=== PATIENT | female | born 1935 | race Caucasian/White ===

== ENCOUNTER 2016-10-24 21:40 | Inpatient (IN) | payer OTHER, BC ==
[~2016-10-24] VITALS: Ht 167.6 cm; Wt 90.2 kg
[~2016-10-24 21:40] MED LIST: ACETAMINOPHN-T1 EACH PO; ASCORBIC ACID500 M3 PO; ASPIRIN81 M2 PO; BACTROBAN OINTM22 GM BOTH NARES; CALCIUM CARBON260 MG PO; CHILD ASPIRIN81 M1 PO; CLINDAMYCIN HC300 MG PO; CLOPIDOGREL75 MG PO; COLACE100 MG PO; CYANOCOBALAM1000 MCG PO; DICYCLOMINE HCL10 MG PO; DITROPAN5 MG PO; FOLIC ACID1 MG PO; GABAPENTIN300 MG PO; GLIMEPIRIDE1 MG PO; GLIPIZIDE5 MG PO; HURRICAINE SPRA60 ML MM; KEFLEX500 MG PO; LASIX20 MG PO; LOVENOX40 MG/0.4 SC; MOBIC7.5 MG PO; Magic Mouthwash Garg MM; NOVOLOG PE100 UNITS/ SC; ONCE DAILY1 EACH PO; PANTOPRAZOLE SO40 MG PO; PERCOCET 5/31 TABLET PO; POLYETHYLENE GL17 GM PO; PRAVASTATIN SOD40 MG PO; PREDNISONE20 MG PO; PROAIR HFA8.5 GM IH; PROBIOTIC1 EAC1 PO; ROPINIROLE HCL2 MG PO; SALINE FLUSH 5 M5 ML IV; TRAMADOL HCL50 MG PO; TRIAMTERENE-HC1 EAC1 PO; TYLENOL REGULA325 MG PO; ULTRAM50 MG PO; VESICARE10 MG PO; VESICARE5 MG PO; VITAMIN D31000 UNI2 PO; [UNRECOGNIZED DRUG - REMARK]
[2016-10-24 22:07] LABS: MCH 28.5 PG (29.0-34.0); MCHC 31.9 G/DL (30.0-36.0); MCV 89.1 FL (83-99); MEAN PLAT.VOLUME 9.7 uM^3 (9.5-12.4); PLATELET COUNT 329 K/uL (156-360); RBC DIS.WIDTH-CV 15.6 % (11.8-14.6); RBC DIS.WIDTH-SD 49.9 % (39-53); RED BLOOD COUNT 4.04 M/uL (3.80-5.20)
[2016-10-24 22:15] LABS: EOSINOPHIL (%) 0 % (0-5); IMMATURE GRANULOCYTE (%) 0.3 % (0.0-0.7); IMMATURE GRANULOCYTE COUNT 0.8 K/uL; LYMPHOCYTE COUNT 1.2 K/uL (1.0-2.8); MONOCYTE (%) 3.1 % (3-12); MONOCYTE COUNT 0.9 K/uL (0-0.8); NEUTROPHIL (%) 92.5 % (45-76); NEUTROPHIL COUNT 27.7 K/uL (1.8-6.4); WHITE BLOOD COUNT 29.9 K/uL (4.1-10.2)
[2016-10-24 22:17] LABS: CHLORIDE 102 mEq/L (99-109); POTASSIUM 4.1 mEq/L (3.7-5.4); SODIUM 137 mEq/L (136-147)
[2016-10-24 22:19] LABS: ADD MIUA? YES; BILIRUBIN NEGATIVE; BLOOD SMALL; COLOR YELLOW ((YELLOW)); GLUCOSE (STRIP) >=500; KETONES NEGATIVE; LEUKOCYTES NEGATIVE; NITRITE POSITIVE; PROTEIN (STRIP) NEGATIVE; SPECIFIC GRAVITY 1.011 (1.000-1.030); UROBILINOGEN 0.2 MG/DL (0.2-1.0)
[2016-10-24 22:21] LABS: ANION GAP 12 MEQ/L (2-14); TOTAL BILIRUBIN 0.5 mg/dL (0.0-1.0)
[2016-10-24 22:23] LABS: ALKALINE PHOSPHATASE 136 IU/L (3-129); GFR ESTIMATE (CALCULATED) > 59 mL/min/; GLUCOSE 250 mg/dL (70-99)
[2016-10-24 22:24] LABS: UREA NITROGEN (BUN) 16 mg/dL (9-23)
[2016-10-24 22:26] LABS: LIPASE 12 U/L (1.0-51.0)
[2016-10-24 22:27] LABS: INTER. NORMALIZED RATIO 1.3; PROTHROMBIN TIME 13.8 (9.2-11.2); PTT 29.9 (25-32)
[2016-10-24 22:28] LABS: BACTERIA RARE /HPF; EPITHELIAL CELLS RARE /HPF; MUCUS TRACE /LPF; RED BLOOD CELLS 0-5 /HPF (0-5); UCUL ADDED? NO; WHITE BLOOD CELLS 0-5 /HPF (0-5)
[2016-10-24 22:30] LABS: TROP-I INTERPRETATION NEGATIVE; TROPONIN-I < 0.01 ng/mL (0.0-0.30)
[2016-10-24 22:35] LABS: CASTS NONE SEEN /LPF; CRYSTALS NONE SEEN
[2016-10-25] VITALS (7 sets, daily range): BP systolic 98–121; BP diastolic 47–57
[2016-10-25 08:35] LABS: POINT-OF-CARE METER ID UU14149396
[2016-10-25 12:01] LABS: POINT-OF-CARE METER ID UU13113781
[2016-10-25 16:56] LABS: POINT-OF-CARE METER ID UU13113781
[2016-10-25 21:26] LABS: POINT-OF-CARE METER ID UU13113781
[2016-10-26 03:20] VITALS: BP 119/56
[2016-10-26 08:38] LABS: POINT-OF-CARE METER ID UU14174216; POINT-OF-CARE USER ID ENVKC36
[2016-10-26 09:00] VITALS: BP 136/76
[2016-10-26 11:58] LABS: POINT-OF-CARE METER ID UU14174216; POINT-OF-CARE USER ID ENVKC36
[2016-10-26 16:42] VITALS: BP 178/72
[2016-10-26 16:48] LABS: POINT-OF-CARE METER ID UU14174216; POINT-OF-CARE USER ID ENVKC36
[2016-10-26 19:15] VITALS: BP 150/66
[2016-10-26 21:01] LABS: POINT-OF-CARE METER ID UU14174216
[2016-10-26 23:00] VITALS: BP 129/58
[2016-10-27 06:52] LABS: BASOPHIL COUNT 0.1 K/uL (0-0.1); EOSINOPHIL (%) 6.1 % (0-5); EOSINOPHIL COUNT 0.5 K/uL (0-0.3); IMMATURE GRANULOCYTE (%) 0.1 % (0.0-0.7); LYMPHOCYTE COUNT 1.4 K/uL (1.0-2.8); MCH 27.4 PG (29.0-34.0); MCV 88.3 FL (83-99); MEAN PLAT.VOLUME 9.7 uM^3 (9.5-12.4); MONOCYTE (%) 9.3 % (3-12); MONOCYTE COUNT 0.7 K/uL (0-0.8); NEUTROPHIL (%) 64.9 % (45-76); NEUTROPHIL COUNT 4.8 K/uL (1.8-6.4); PLATELET COUNT 240 K/uL (156-360); RBC DIS.WIDTH-CV 16.1 % (11.8-14.6); RBC DIS.WIDTH-SD 51.8 % (39-53); RED BLOOD COUNT 3.51 M/uL (3.80-5.20)
[2016-10-27 06:59] LABS: WHITE BLOOD COUNT 7.3 K/uL (4.1-10.2)
[2016-10-27 07:04] LABS: ANION GAP 7 MEQ/L (2-14); CHLORIDE 106 MEQ/L (99-109); GFR ESTIMATE (CALCULATED) > 59 mL/min/; POTASSIUM 3.4 MEQ/L (3.7-5.4); SAMPLE HEMOLYSIS CHECK 0; SAMPLE ICTERIC CHECK 0; SAMPLE LIPEMIA CHECK 0; SODIUM 139 MEQ/L (136-147); UREA NITROGEN (BUN) 10 mg/dL (9-23)
[2016-10-27 07:06] LABS: GLUCOSE 112 mg/dL (70-99)
[2016-10-27 08:15] LABS: POINT-OF-CARE METER ID UU13113781
[2016-10-27 09:00] VITALS: BP 119/66
[2016-10-27 12:09] VITALS: BP 138/70
[2016-10-27 16:28] VITALS: BP 135/79
[2016-10-27 19:30] VITALS: BP 146/69
[2016-10-28] VITALS (7 sets, daily range): BP systolic 137–179; BP diastolic 56–94
[2016-10-28 06:13] LABS: EOSINOPHIL (%) 7.4 % (0-5); EOSINOPHIL COUNT 0.4 K/uL (0-0.3); HEMATOCRIT 30.3 % (36.0-46.0); LYMPHOCYTE COUNT 2.1 K/uL (1.0-2.8); MCH 27.2 PG (29.0-34.0); MCV 87.8 FL (83-99); MONOCYTE COUNT 0.6 K/uL (0-0.8); NEUTROPHIL (%) 46.4 % (45-76); NEUTROPHIL COUNT 2.8 K/uL (1.8-6.4); PLATELET COUNT 265 K/uL (156-360); RBC DIS.WIDTH-CV 15.7 % (11.8-14.6); RBC DIS.WIDTH-SD 50.2 % (39-53); RED BLOOD COUNT 3.45 M/uL (3.80-5.20)
[2016-10-28 06:39] LABS: ANION GAP 7 MEQ/L (2-14); CHLORIDE 106 MEQ/L (99-109); GFR ESTIMATE (CALCULATED) > 59 mL/min/; GLUCOSE 121 mg/dL (70-99); SAMPLE HEMOLYSIS CHECK 0; SAMPLE ICTERIC CHECK 0; SAMPLE LIPEMIA CHECK 0; SODIUM 140 MEQ/L (136-147); UREA NITROGEN (BUN) 8 mg/dL (9-23)
[2016-10-28 06:40] LABS: POTASSIUM 4.2 MEQ/L (3.7-5.4)
[2016-10-28 12:00] LABS: POINT-OF-CARE METER ID UU14162508
[2016-10-28 17:03] LABS: POINT-OF-CARE METER ID UU14162508
[2016-10-28 21:33] LABS: POINT-OF-CARE METER ID UU14162508
[2016-10-29 03:52] VITALS: BP 108/65
[2016-10-29 06:44] LABS: EOSINOPHIL (%) 6.7 % (0-5); EOSINOPHIL COUNT 0.5 K/uL (0-0.3); IMMATURE GRANULOCYTE (%) 0.3 % (0.0-0.7); LYMPHOCYTE COUNT 1.9 K/uL (1.0-2.8); MCH 28.5 PG (29.0-34.0); MCHC 32.4 G/DL (30.0-36.0); MCV 87.8 FL (83-99); MEAN PLAT.VOLUME 10.2 uM^3 (9.5-12.4); MONOCYTE (%) 9.3 % (3-12); MONOCYTE COUNT 0.6 K/uL (0-0.8); NEUTROPHIL (%) 55.2 % (45-76); NEUTROPHIL COUNT 3.8 K/uL (1.8-6.4); PLATELET COUNT 306 K/uL (156-360); RBC DIS.WIDTH-CV 15.7 % (11.8-14.6); RBC DIS.WIDTH-SD 50.2 % (39-53); RED BLOOD COUNT 3.76 M/uL (3.80-5.20); WHITE BLOOD COUNT 6.9 K/uL (4.1-10.2)
[2016-10-29 07:01] LABS: ANION GAP 5 MEQ/L (2-14); CHLORIDE 105 MEQ/L (99-109); GFR ESTIMATE (CALCULATED) > 59 mL/min/; GLUCOSE 148 mg/dL (70-99); POTASSIUM 4.2 MEQ/L (3.7-5.4); SAMPLE HEMOLYSIS CHECK 0; SAMPLE ICTERIC CHECK 0; SAMPLE LIPEMIA CHECK 0; SODIUM 141 MEQ/L (136-147); UREA NITROGEN (BUN) 11 mg/dL (9-23)
[2016-10-29 07:54] VITALS: BP 146/65
[2016-10-29 11:39] LABS: POINT-OF-CARE METER ID UU14162508
[2016-10-29 12:00] VITALS: BP 120/67
[2016-10-29 16:08] LABS: METH RESISTANT S AUREUS PCR NEGATIVE (NEGATIVE)
[2016-10-29 16:09] LABS: PROBE CHECK PASS; SPECIMEN PROCESSING CONTROL PASS
[2016-10-29 20:00] VITALS: BP 143/62
[2016-10-29 23:38] VITALS: BP 138/70
[2016-10-30 03:27] VITALS: BP 129/58
[2016-10-30 07:43] LABS: EOSINOPHIL (%) 6.3 % (0-5); EOSINOPHIL COUNT 0.4 K/uL (0-0.3); HEMATOCRIT 34.2 % (36.0-46.0); IMMATURE GRANULOCYTE (%) 0.4 % (0.0-0.7); LYMPHOCYTE COUNT 2.4 K/uL (1.0-2.8); MCH 27.3 PG (29.0-34.0); MCV 88.1 FL (83-99); MEAN PLAT.VOLUME 9.8 uM^3 (9.5-12.4); MONOCYTE (%) 8.7 % (3-12); MONOCYTE COUNT 0.6 K/uL (0-0.8); NEUTROPHIL (%) 49.1 % (45-76); NEUTROPHIL COUNT 3.3 K/uL (1.8-6.4); PLATELET COUNT 327 K/uL (156-360); RBC DIS.WIDTH-CV 15.7 % (11.8-14.6); RBC DIS.WIDTH-SD 50.2 % (39-53); RED BLOOD COUNT 3.88 M/uL (3.80-5.20); WHITE BLOOD COUNT 6.8 K/uL (4.1-10.2)
[2016-10-30 08:07] LABS: ANION GAP 10 MEQ/L (2-14); CHLORIDE 103 MEQ/L (99-109); GFR ESTIMATE (CALCULATED) > 59 mL/min/; GLUCOSE 141 mg/dL (70-99); POTASSIUM 4.2 MEQ/L (3.7-5.4); SAMPLE HEMOLYSIS CHECK 0; SAMPLE ICTERIC CHECK 0; SAMPLE LIPEMIA CHECK 0; SODIUM 140 MEQ/L (136-147); UREA NITROGEN (BUN) 14 mg/dL (9-23)
[2016-10-30 08:14] VITALS: BP 133/68
[2016-10-30 11:41] VITALS: BP 145/64
[2016-10-30 15:58] VITALS: BP 125/59
[2016-10-30 20:00] VITALS: BP 120/59
[2016-10-30 23:42] VITALS: BP 155/67
[2016-10-31 04:06] VITALS: BP 167/72
[2016-10-31 06:51] LABS: HEMATOCRIT 34.6 % (36.0-46.0); MCH 26.9 PG (29.0-34.0); MCHC 30.3 G/DL (30.0-36.0); MCV 88.5 FL (83-99); MEAN PLAT.VOLUME 9.8 uM^3 (9.5-12.4); PLATELET COUNT 354 K/uL (156-360); RBC DIS.WIDTH-CV 15.8 % (11.8-14.6); RBC DIS.WIDTH-SD 50.5 % (39-53); RED BLOOD COUNT 3.91 M/uL (3.80-5.20); WHITE BLOOD COUNT 8.3 K/uL (4.1-10.2)
[2016-10-31 07:04] LABS: BASOPHIL COUNT 0.1 K/uL (0-0.1); EOSINOPHIL (%) 9.3 % (0-5); EOSINOPHIL COUNT 0.8 K/uL (0-0.3); IMMATURE GRANULOCYTE (%) 0.4 % (0.0-0.7); LYMPHOCYTE COUNT 2.6 K/uL (1.0-2.8); MONOCYTE (%) 7.9 % (3-12); MONOCYTE COUNT 0.7 K/uL (0-0.8); NEUTROPHIL (%) 50.2 % (45-76); NEUTROPHIL COUNT 4.2 K/uL (1.8-6.4)
[2016-10-31 07:18] LABS: ANION GAP 9 MEQ/L (2-14); CHLORIDE 102 MEQ/L (99-109); GFR ESTIMATE (CALCULATED) > 59 mL/min/; GLUCOSE 137 mg/dL (70-99); POTASSIUM 4.3 MEQ/L (3.7-5.4); SAMPLE HEMOLYSIS CHECK 0; SAMPLE ICTERIC CHECK 0; SAMPLE LIPEMIA CHECK 0; SODIUM 140 MEQ/L (136-147); UREA NITROGEN (BUN) 17 mg/dL (9-23)
[2016-10-31 08:00] VITALS: BP 139/60
[2016-10-31 16:00] VITALS: BP 138/62
[2016-10-31 23:38] VITALS: BP 125/60
[2016-11-01 07:00] VITALS: BP 143/66
[2016-11-01] MEDS ORDERED: CEFTIN500 MG PO (12:27)
== END 2016-11-01 14:50 | disposition home health service (06) | DRG 871 ==
LOC: EME → EDBD 21:40 → 4EAST 23:32 → EDOF 23:32 → 4SOUTH 23:32 → 2EAST 23:32 → 4SOUTH 10-25 01:26 → 4EAST 10-25 11:11 → 2EAST 10-28 11:23
PROVIDERS: Emergency Medicine; Family Medicine
DX: A41.9 Sepsis, unspecified organism (principal); L89.623 Pressure ulcer of left heel, stage 3; L03.116 Cellulitis of left lower limb; M86.672 Other chronic osteomyelitis, left ankle and foot; E87.2 Acidosis; L97.819 Non-pressure chronic ulcer of other part of right lower leg with unspecified severity; L97.829 Non-pressure chronic ulcer of other part of left lower leg with unspecified severity; L89.150 Pressure ulcer of sacral region, unstageable; L89.320 Pressure ulcer of left buttock, unstageable; D63.1 Anemia in chronic kidney disease; E11.628 Type 2 diabetes mellitus with other skin complications; L89.890 Pressure ulcer of other site, unstageable; I10 Essential (primary) hypertension; I87.8 Other specified disorders of veins; I89.0 Lymphedema, not elsewhere classified; J45.909 Unspecified asthma, uncomplicated; M19.90 Unspecified osteoarthritis, unspecified site; E11.40 Type 2 diabetes mellitus with diabetic neuropathy, unspecified; E78.5 Hyperlipidemia, unspecified; K21.9 Gastro-esophageal reflux disease without esophagitis; G25.81 Restless legs syndrome; G89.4 Chronic pain syndrome; I87.2 Venous insufficiency (chronic) (peripheral); E87.6 Hypokalemia; B95.4 Other streptococcus as the cause of diseases classified elsewhere; E11.69 Type 2 diabetes mellitus with other specified complication; Z90.49 Acquired absence of other specified parts of digestive tract; Z86.73 Personal history of transient ischemic attack (TIA), and cerebral infarction without residual deficits
CPT/HCPCS: 70450; 71010; 73720; 80048; 80053; 81003; 82550; 82553; 82948; 83605; 83690; 84484; 85025; 85610; 85730; 87040; 87077; 87641; 87801; 93005; 93970; 99202; 99281; 99285; J0696; J1650; J1815; J2270; J2405; J2543; J3370; J7050

== ENCOUNTER 2016-12-08 15:58 | Inpatient (IN) | payer OTHER, BC ==
[~2016-12-08] VITALS: Ht 167.6 cm; Wt 84.6 kg
[~2016-12-08 15:58] MED LIST changes: +CEFTIN500 MG PO
[2016-12-08 16:28] LABS: MCH 28.1 PG (29.0-34.0); MCHC 31.5 G/DL (30.0-36.0); MCV 89.2 FL (83-99); MEAN PLAT.VOLUME 9.4 uM^3 (9.5-12.4); PLATELET COUNT 411 K/uL (156-360); RBC DIS.WIDTH-CV 14.6 % (11.8-14.6); RBC DIS.WIDTH-SD 47.4 % (39-53); RED BLOOD COUNT 3.81 M/uL (3.80-5.20); WHITE BLOOD COUNT 27.1 K/uL (4.1-10.2)
[2016-12-08 16:39] LABS: INTER. NORMALIZED RATIO 1.3; PROTHROMBIN TIME 13.7 (9.2-11.2)
[2016-12-08 16:40] LABS: CHLORIDE 100 mEq/L (99-109); POTASSIUM 3.7 mEq/L (3.7-5.4); SODIUM 137 mEq/L (136-147)
[2016-12-08 16:41] LABS: GLUCOSE 194 mg/dL (70-99)
[2016-12-08 16:43] LABS: ANION GAP 12 MEQ/L (2-14)
[2016-12-08 16:46] LABS: GFR ESTIMATE (CALCULATED) > 59 mL/min/; UREA NITROGEN (BUN) 17 mg/dL (9-23)
[2016-12-08] MEDS ORDERED: PROTONIX40 MG PO (17:11)
[2016-12-08] MEDS ORDERED: TRAMADOL HCL50 MG PO (17:12)
[2016-12-08] MEDS ORDERED: FUROSEMIDE40 MG PO (17:15)
[2016-12-08] MEDS ORDERED: METFORMIN HCL500 MG PO (17:15)
[2016-12-08 21:09] VITALS: BP 102/62
[2016-12-09] VITALS (7 sets, daily range): BP systolic 92–123; BP diastolic 48–60
[2016-12-09 07:38] LABS: ANION GAP 6 MEQ/L (2-14); BASOPHIL COUNT 0.1 K/uL (0-0.1); CHLORIDE 103 MEQ/L (99-109); EOSINOPHIL (%) 0 % (0-5); GFR ESTIMATE (CALCULATED) > 59 mL/min/; GLUCOSE 165 mg/dL (70-99); HEMATOCRIT 27.9 % (36.0-46.0); IMMATURE GRANULOCYTE (%) 0.7 % (0.0-0.7); IMMATURE GRANULOCYTE COUNT 0.1 K/uL; INSTRUMENT ABS NEUTROPHIL CT 16.8 K/uL; LYMPHOCYTE COUNT 1.5 K/uL (1.0-2.8); MCH 27.7 PG (29.0-34.0); MCHC 30.8 G/DL (30.0-36.0); MCV 89.7 FL (83-99); MEAN PLAT.VOLUME 9.7 uM^3 (9.5-12.4); MONOCYTE (%) 4.3 % (3-12); MONOCYTE COUNT 0.8 K/uL (0-0.8); NEUTROPHIL COUNT 16.8 K/uL (1.8-6.4); PLATELET COUNT 319 K/uL (156-360); POTASSIUM 3.8 MEQ/L (3.7-5.4); RBC DIS.WIDTH-CV 14.8 % (11.8-14.6); RBC DIS.WIDTH-SD 48.6 % (39-53); RED BLOOD COUNT 3.11 M/uL (3.80-5.20); SAMPLE HEMOLYSIS CHECK 0; SAMPLE ICTERIC CHECK 0; SAMPLE LIPEMIA CHECK 0; SODIUM 136 MEQ/L (136-147); UREA NITROGEN (BUN) 18 mg/dL (9-23); WHITE BLOOD COUNT 19.3 K/uL (4.1-10.2)
[2016-12-09 17:04] LABS: POINT-OF-CARE METER ID UU14162508
[2016-12-10 00:26] VITALS: BP 120/65
[2016-12-10 04:01] VITALS: BP 133/70
[2016-12-10 06:58] LABS: BASOPHIL COUNT 0.1 K/uL (0-0.1); EOSINOPHIL (%) 3.4 % (0-5); EOSINOPHIL COUNT 0.3 K/uL (0-0.3); HEMATOCRIT 28.2 % (36.0-46.0); IMMATURE GRANULOCYTE (%) 0.2 % (0.0-0.7); INSTRUMENT ABS NEUTROPHIL CT 5.9 K/uL; LYMPHOCYTE COUNT 1.8 K/uL (1.0-2.8); MCH 27.5 PG (29.0-34.0); MCHC 30.9 G/DL (30.0-36.0); MCV 89.2 FL (83-99); MEAN PLAT.VOLUME 9.6 uM^3 (9.5-12.4); MONOCYTE (%) 8.3 % (3-12); MONOCYTE COUNT 0.7 K/uL (0-0.8); NEUTROPHIL (%) 67.5 % (45-76); NEUTROPHIL COUNT 5.9 K/uL (1.8-6.4); PLATELET COUNT 291 K/uL (156-360); RBC DIS.WIDTH-CV 14.8 % (11.8-14.6); RBC DIS.WIDTH-SD 48.2 % (39-53); RED BLOOD COUNT 3.16 M/uL (3.80-5.20)
[2016-12-10 07:10] LABS: ANION GAP 6 MEQ/L (2-14); CHLORIDE 106 MEQ/L (99-109); GFR ESTIMATE (CALCULATED) > 59 mL/min/; POTASSIUM 3.5 MEQ/L (3.7-5.4); SAMPLE HEMOLYSIS CHECK 0; SAMPLE ICTERIC CHECK 0; SAMPLE LIPEMIA CHECK 0; SODIUM 138 MEQ/L (136-147); UREA NITROGEN (BUN) 11 mg/dL (9-23)
[2016-12-10 07:15] VITALS: BP 129/63
[2016-12-10 07:17] LABS: GLUCOSE 86 mg/dL (70-99)
[2016-12-10 07:21] LABS: WHITE BLOOD COUNT 8.8 K/uL (4.1-10.2)
[2016-12-10 11:35] VITALS: BP 115/54
[2016-12-10 15:30] VITALS: BP 141/62
[2016-12-11 00:47] VITALS: BP 115/58
[2016-12-11 05:02] VITALS: BP 124/61
[2016-12-11 06:49] LABS: BASOPHIL COUNT 0.1 K/uL (0-0.1); EOSINOPHIL (%) 9.2 % (0-5); EOSINOPHIL COUNT 0.6 K/uL (0-0.3); HEMATOCRIT 28.4 % (36.0-46.0); IMMATURE GRANULOCYTE (%) 0.3 % (0.0-0.7); INSTRUMENT ABS NEUTROPHIL CT 3.4 K/uL; LYMPHOCYTE COUNT 1.8 K/uL (1.0-2.8); MCH 27.5 PG (29.0-34.0); MCHC 30.6 G/DL (30.0-36.0); MCV 89.9 FL (83-99); MEAN PLAT.VOLUME 9.9 uM^3 (9.5-12.4); MONOCYTE (%) 8.9 % (3-12); MONOCYTE COUNT 0.6 K/uL (0-0.8); NEUTROPHIL (%) 52.7 % (45-76); NEUTROPHIL COUNT 3.4 K/uL (1.8-6.4); PLATELET COUNT 303 K/uL (156-360); RBC DIS.WIDTH-CV 14.9 % (11.8-14.6); RBC DIS.WIDTH-SD 49.1 % (39-53); RED BLOOD COUNT 3.16 M/uL (3.80-5.20); WHITE BLOOD COUNT 6.4 K/uL (4.1-10.2)
[2016-12-11 07:00] LABS: ANION GAP 5 MEQ/L (2-14); CHLORIDE 106 MEQ/L (99-109); GFR ESTIMATE (CALCULATED) > 59 mL/min/; POTASSIUM 4.2 MEQ/L (3.7-5.4); SAMPLE HEMOLYSIS CHECK 0; SAMPLE ICTERIC CHECK 0; SAMPLE LIPEMIA CHECK 0; SODIUM 139 MEQ/L (136-147); UREA NITROGEN (BUN) 8 mg/dL (9-23)
[2016-12-11 07:02] LABS: GLUCOSE 109 mg/dL (70-99)
[2016-12-11 07:42] VITALS: BP 121/58
[2016-12-11 16:44] VITALS: BP 142/68
[2016-12-12 00:46] VITALS: BP 114/57
[2016-12-12 07:10] LABS: BASOPHIL COUNT 0.1 K/uL (0-0.1); EOSINOPHIL (%) 10.2 % (0-5); EOSINOPHIL COUNT 0.7 K/uL (0-0.3); IMMATURE GRANULOCYTE (%) 0.3 % (0.0-0.7); INSTRUMENT ABS NEUTROPHIL CT 4.2 K/uL; LYMPHOCYTE COUNT 1.7 K/uL (1.0-2.8); MCH 27.8 PG (29.0-34.0); MCHC 31.3 G/DL (30.0-36.0); MCV 88.8 FL (83-99); MEAN PLAT.VOLUME 9.9 uM^3 (9.5-12.4); MONOCYTE COUNT 0.6 K/uL (0-0.8); NEUTROPHIL (%) 57.5 % (45-76); NEUTROPHIL COUNT 4.2 K/uL (1.8-6.4); PLATELET COUNT 335 K/uL (156-360); RBC DIS.WIDTH-CV 14.6 % (11.8-14.6); RBC DIS.WIDTH-SD 47.5 % (39-53); RED BLOOD COUNT 3.49 M/uL (3.80-5.20); WHITE BLOOD COUNT 7.3 K/uL (4.1-10.2)
[2016-12-12 07:32] LABS: ANION GAP 6 MEQ/L (2-14); CHLORIDE 104 MEQ/L (99-109); GFR ESTIMATE (CALCULATED) > 59 mL/min/; GLUCOSE 92 mg/dL (70-99); POTASSIUM 4.2 MEQ/L (3.7-5.4); SAMPLE HEMOLYSIS CHECK 0; SAMPLE ICTERIC CHECK 0; SAMPLE LIPEMIA CHECK 0; SODIUM 137 MEQ/L (136-147); UREA NITROGEN (BUN) 7 mg/dL (9-23)
[2016-12-12 07:35] VITALS: BP 157/87
[2016-12-12 15:50] VITALS: BP 134/80
[2016-12-12 20:57] VITALS: BP 110/51
[2016-12-12 23:24] VITALS: BP 109/52
[2016-12-13 07:51] LABS: ANION GAP 7 MEQ/L (2-14); CHLORIDE 101 MEQ/L (99-109); GFR ESTIMATE (CALCULATED) > 59 mL/min/; GLUCOSE 113 mg/dL (70-99); POTASSIUM 4.4 MEQ/L (3.7-5.4); SAMPLE HEMOLYSIS CHECK 0; SAMPLE ICTERIC CHECK 0; SAMPLE LIPEMIA CHECK 0; SODIUM 138 MEQ/L (136-147); UREA NITROGEN (BUN) 13 mg/dL (9-23)
[2016-12-13 08:00] VITALS: BP 122/58
[2016-12-13 16:00] VITALS: BP 124/62
[2016-12-13 23:34] VITALS: BP 111/62
[2016-12-14 07:07] LABS: ANION GAP 7 MEQ/L (2-14); CHLORIDE 101 MEQ/L (99-109); GFR ESTIMATE (CALCULATED) > 59 mL/min/; GLUCOSE 114 mg/dL (70-99); POTASSIUM 4.5 MEQ/L (3.7-5.4); SAMPLE HEMOLYSIS CHECK 0; SAMPLE ICTERIC CHECK 0; SAMPLE LIPEMIA CHECK 0; SODIUM 137 MEQ/L (136-147)
[2016-12-14 07:09] LABS: UREA NITROGEN (BUN) 22 mg/dL (9-23)
[2016-12-14 08:00] VITALS: BP 117/55
[2016-12-14 16:44] LABS: POINT-OF-CARE USER ID STWLMB34
[2016-12-14 23:36] VITALS: BP 116/59
[2016-12-15 06:45] LABS: ANION GAP 9 MEQ/L (2-14); CHLORIDE 102 MEQ/L (99-109); GFR ESTIMATE (CALCULATED) > 59 mL/min/; GLUCOSE 96 mg/dL (70-99); POTASSIUM 4.7 MEQ/L (3.7-5.4); SAMPLE HEMOLYSIS CHECK 0; SAMPLE ICTERIC CHECK 0; SAMPLE LIPEMIA CHECK 0; SODIUM 138 MEQ/L (136-147); UREA NITROGEN (BUN) 20 mg/dL (9-23)
[2016-12-15 08:15] VITALS: BP 145/62
[2016-12-15 10:58] VITALS: BP 112/55
[2016-12-15] MEDS ORDERED: KEFLEX500 MG PO (13:25)
[2016-12-15] MEDS ORDERED: POTASSIUM CHLO10 ME3 PO (13:25)
== END 2016-12-15 16:14 | disposition home health service (06) | DRG 602 ==
LOC: EME 15:58 → EDOF 17:30 → 2EASTP 17:30 → EDOF 18:10 → 2EASTP 20:59
PROVIDERS: Emergency Medicine; Family Medicine
DX: L03.115 Cellulitis of right lower limb (principal); L89.323 Pressure ulcer of left buttock, stage 3; L97.929 Non-pressure chronic ulcer of unspecified part of left lower leg with unspecified severity; L97.919 Non-pressure chronic ulcer of unspecified part of right lower leg with unspecified severity; R78.81 Bacteremia; L03.116 Cellulitis of left lower limb; S91.301A Unspecified open wound, right foot, initial encounter; R26.2 Difficulty in walking, not elsewhere classified; E11.40 Type 2 diabetes mellitus with diabetic neuropathy, unspecified; L89.620 Pressure ulcer of left heel, unstageable; I87.2 Venous insufficiency (chronic) (peripheral); I89.0 Lymphedema, not elsewhere classified; E87.6 Hypokalemia; F03.90 Unspecified dementia, unspecified severity, without behavioral disturbance, psychotic disturbance, mood disturbance, and anxiety; E78.5 Hyperlipidemia, unspecified; I10 Essential (primary) hypertension; K21.9 Gastro-esophageal reflux disease without esophagitis; G40.909 Epilepsy, unspecified, not intractable, without status epilepticus; J45.909 Unspecified asthma, uncomplicated; G89.4 Chronic pain syndrome; M19.90 Unspecified osteoarthritis, unspecified site; Z91.81 History of falling; Z91.040 Latex allergy status; Z88.1 Allergy status to other antibiotic agents; Z85.828 Personal history of other malignant neoplasm of skin; Z86.73 Personal history of transient ischemic attack (TIA), and cerebral infarction without residual deficits
CPT/HCPCS: 70450; 72125; 80048; 81003; 82948; 83605; 85025; 85027; 85610; 87040; 87077; 87086; 87801; 99202; 99281; 99285; J0690; J1650; J1815; J1940; J2405; J2543; J7030; J7050

== ENCOUNTER 2017-01-28 17:29 | Emergency (ER) | payer OTHER, BC ==
[~2017-01-28] VITALS: Ht 167.6 cm; Wt 88.2 kg
[~2017-01-28 17:29] MED LIST changes: +FUROSEMIDE40 MG PO; +METFORMIN HCL500 MG PO; +POTASSIUM CHLO10 ME3 PO; +PROTONIX40 MG PO
[2017-01-28 20:34] VITALS: BP 139/64
== END 2017-01-28 20:36 | disposition home or self-care (01) ==
LOC: EME 17:29
DX: S00.81XA Abrasion of other part of head, initial encounter (principal); I10 Essential (primary) hypertension; E78.5 Hyperlipidemia, unspecified; W18.30XA Fall on same level, unspecified, initial encounter; Z91.040 Latex allergy status; Z88.8 Allergy status to other drugs, medicaments and biological substances
CPT/HCPCS: 70450; 99281; 99285